=== PATIENT | female | born 1990 | race African-American/Black ===

== ENCOUNTER 2017-11-18 17:42 | Emergency (ER) | payer SELFPAY ==
[2017-11-18] MEDS ORDERED: Ibuprofen TAB* 600 MG PO ONE (18:17)
[2017-11-18 18:43] VITALS: BP 141/88
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
== END 2017-11-18 19:56 | disposition home or self-care (01) ==
LOC: ED 17:42
DX: S09.90XA Unspecified injury of head, initial encounter (principal); V43.52XA Car driver injured in collision with other type car in traffic accident, initial encounter; Y92.410 Unspecified street and highway as the place of occurrence of the external cause
CPT/HCPCS: 70450; 99283; A9270-GY

== ENCOUNTER 2019-04-14 23:03 | Emergency (ER) | payer OTHER ==
[2019-04-14 23:57] LABS: ABS Basophils 0.1 10^3/ul (0-0.2); ABS Eosinophils 0.2 10^3/ul (0-0.6); ABS Lymphocytes 4.5 10^3/ul (1.0-4.8); ABS Monocytes 0.8 10^3/ul (0-0.8); ABS Neutrophils 8.2 10^3/ul (1.5-7.7); Eosinophil % 1.8 %; Hematocrit 37 % (35-47); Hemoglobin 13.1 g/dL (12.0-16.0); Lymphocyte % 32.4 %; Mean Corpuscular HGB Conc 36 g/dL (31-36); Mean Corpuscular Hemoglobin 30 pg (27-31); Mean Corpuscular Volume 84 fL (80-97); Mean Platelet Volume 8.7 fL (7.4-10.4); Platelet Count 200 10^3/uL (150-450); Red Blood Count 4.36 10^6 /uL (3.70-4.87); Red Cell Distribution Width 14 % (10-15); White Blood Count 13.8 10^3/uL (3.5-10.8)
--- NOTE | 2019-04-15 00:07 | ED ---
GI/ HPI - HPI Summary HPI Summary: Patient is a 28 y/o F presenting to [facility] with chief complaint of vaginal bleeding. Vaginal bleeding onset 04/13/19. She states that she went through 8 pads the day that vaginal bleeding onset. Patient was passing blood clots more frequently throughout today. Some mild abdominal pain characterized as pressure , nipple tenderness, and decreased appetite are noted as well. Patient also reports increased fatigue with exertion and increased somnolence. CP, SOB, vomiting, diarrhea, dysuria and dizziness are denied. No similar previous episodes are noted. LNMP was February and is characterized as normal. She is not on control. Patient is unsure of . PMHx and PSHx are denied. FMHx of breast cancer in grandmother noted. She uses marijuana and endorses rare alcohol consumption. Patient took ibuprofen yesterday, none today. Home medications and allergies are reviewed. - History of Current Complaint Chief Complaint: EDVaginalBleeding Time Seen by Provider: 04/14/19 23:42 Stated Complaint: VAGINAL BLEEDING PER PT Hx Obtained From: Patient Hx Last Menstrual Period: NOW Onset/Duration: Still Present Timing: Constant Severity: Mild Current Severity: Mild Pain Intensity: 3 Pain Characteristics: Pressure Associated Signs and Symptoms: Positive: Change in Appetite - decreased, Abdominal Pain, Other: - positive - nipple tenderness, increased fatigue, increased somnolence; negative - CP, SOB, vomiting, diarrhea, dysuria and dizziness Additional Signs & Symptoms: Positive: Vaginal Bleeding - Allergy/Home Medications Allergies/Adverse Reactions: Allergies Allergy/AdvReac Type Severity Reaction Status Date / Time shellfish derived Allergy Severe Anaphylatic Verified 04/14/19 23:29 Shock PMH/Surg Hx/FS Hx/Imm Hx Sensory History: Denies: Hx Legally Blind, Hx Deafness Opthamlomology History: Denies: Hx Legally Blind EENT History: Denies: Hx Deafness Infectious Disease History: No Infectious Disease History: Reports: Hx of Known/Suspected MRSA Denies: Traveled Outside the [place] in Last 30 Days - Family History Known Family History: Positive: Other - breast cancer, grandmother - Social History Alcohol Use: Rare Hx Substance Use: Yes Substance Use Type: Reports: Marijuana Hx Tobacco Use: No Smoking Status (MU): Never Smoked Tobacco - Additional Comments History Additional Comments: No PMHx No PSHx FMHx of breast cancer Review of Systems - ROS Summary Review of Systems Summary: Home Medications Medication Instructions Recorded Confirmed Type NK [No Home Medications Reported] 11/18/17 04/14/19 History Constitutional: Other - positive - increased somnolence Positive: Fatigue Negative: Chest Pain Negative: Shortness Of Breath Gastrointestinal: Other - positive - decreased appetite Positive: Abdominal Pain. Negative: Vomiting, Diarrhea Genitourinary: Other - positive - vaginal bleeding Negative: dysuria Skin: Other - positive - nipple tenderness Neurological: Other - negative - dizziness All Other Systems Reviewed And Are Negative: Yes Physical Exam - Summary Physical Exam Summary: General: Well-developed, Obese female. No acute distress. HEENT: Normocephalic, Atraumatic. Eyes: Conjuctiva normal, PERRL. Oropharynx: Clear, mucous membranes moist, (-) exudates. Neck: Soft, FROM, (-) lymphadenopathy, (-) thyromegaly, (-) JVD. Cardiovascular: Normal sinus rhythm, (-) murmur. Lungs: Clear to auscultation bilaterally (-) wheezes, (-) rales, (-) rhonchi. Abdomen: Soft, mild suprapubic tenderness, non-distended, (-) organomegaly, normal bowel sounds. Back: (-) CVA tenderness Extremities: No edema. Skin: Warm, dry, (-) rash. Neuro: Alert and oriented x3, no focal deficits. Psychiatric: Mood normal, affect normal. Triage Information Reviewed: Yes Vital Signs On Initial Exam: Initial Vitals Temp Pulse Resp BP Pulse Ox 97.6 F 92 20 135/88 97 04/14/19 23:05 04/14/19 23:05 04/14/19 23:05 04/14/19 23:05 04/14/19 23:05 Vital Signs Reviewed: Yes Procedures - Sedation Patient Received Moderate/Deep Sedation with Procedure: No Diagnostics - Vital Signs Vital Signs Temp Pulse Resp BP Pulse Ox 04/14/19 23:33 86 118/81 95 04/14/19 23:05 97.6 F 92 20 135/88 97 - Laboratory Result Diagrams: 04/14/19 23:48 04/14/19 23:48 Lab Statement: Any lab studies that have been ordered have been reviewed, and results considered in the medical decision making process. GIGU Course/Dx - Course Course Of Treatment: 28 year old female presents with heavy vaginal bleeding. started yesterday. painful cramps. does not use control. took ibuprofen yesterday, none today. workup demonstrates negative test. normal hemoglobin. During ED course, maki received 400 mg Motrin PO. discharged to home. follow up with PCP. follow up sooner for any worsening symptoms - Diagnoses Provider Diagnoses: Menorrhagia Discharge ED - Sign-Out/Discharge Documenting (check all that apply): Patient Departure - discharge - Discharge Plan Condition: Stable Disposition: HOME Patient Education Materials: Menorrhagia (ED) Referrals: [facility] [Outside] - 3 Days Additional Instructions: PLEASE RETURN TO ED FOR ANY NEW OR WORSENING SYMPTOMS. PLEASE FOLLOW UP WITH YOUR PRIMARY CARE PHYSICIAN WITHIN THREE DAYS. - Billing Disposition and Condition Condition: STABLE Disposition: Home - Attestation Statements Document Initiated by Scribe: Yes Documenting Scribe: MARQUIS KIRBY Provider For Whom Scribe is Documenting (Include Credential): RYAN GLASS MD Scribe Attestation: MARQUIS Salas, scribed for RYAN GLASS MD on 04/15/19 at 0431. Scribe Documentation Reviewed: Yes Provider Attestation: The documentation as recorded by the MARQUIS colin accurately reflects the service I personally performed and the decisions made by , RYAN GLASS MD Status of Scribe Document: Viewed
[2019-04-15 00:21] LABS: ALT 32 U/L (7-52); AST 17 U/L (13-39); Albumin 4.1 g/dL (3.2-5.2); Albumin/Globulin Ratio 1.5 (1-3); Alkaline Phosphatase 60 U/L (34-104); Anion Gap 6 mmol/L (2-11); BUN/Creatinine Ratio 14.1 (8-20); Blood Urea Nitrogen 9 mg/dL (6-24); CO2 Carbon Dioxide 26 mmol/L (22-32); Chloride 107 mmol/L (101-111); EGFR African American 132.7 (>60); EGFR Non-African American 109.7 (>60); Globulin 2.8 g/dL (2-4); Glucose 110 mg/dL (70-100); Potassium 3.5 mmol/L (3.5-5.0); Sodium 139 mmol/L (135-145); Total Protein 6.9 g/dL (6.4-8.9)
[2019-04-15 00:28] LABS: HCG Pregnancy < 0.60 mIU/mL
[2019-04-15 00:34] LABS: INR 1.09 (0.82-1.09)
[2019-04-15] MEDS ORDERED: Ibuprofen TAB* 400 MG PO ONE (00:38)
[2019-04-15 00:44] LABS: Urine Appearance Turbid; Urine Color Red; Urine Specific Gravity 1.022 (1.010-1.030)
[2019-04-15 00:51] LABS: Urine Red Blood Cell 3+(>10/hpf) (Absent); Urine Squamous Epithelial Cell Present (Absent); Urine White Blood Cell Trace(0-5/hpf) (Absent)
[2019-04-15 00:52] LABS: Urine Bacteria Absent (Absent)
[2019-04-15 01:53] VITALS: BP 132/84
[2019-04-15 12:39] LABS: HIV 4th Generation Nonreactive (Nonreactive)
== END 2019-04-15 01:48 | disposition home or self-care (01) ==
LOC: ED 23:03
DX: N93.9 Abnormal uterine and vaginal bleeding, unspecified (principal); N92.0 Excessive and frequent menstruation with regular cycle; R53.83 Other fatigue
CPT/HCPCS: 36415; 80053; 81003; 84702; 85025; 85610; 87086; 87389; 99283; A9270-GY